=== PATIENT | male | born 1945 | race Caucasian/White ===

== ENCOUNTER 2019-03-29 07:23 | Day surgery (SDC) | payer MEDICARE, OTHER, BC ==
[2019-03-29] MEDS ORDERED: Midazolam* 1 MG/ML 2 ML VIAL (2 MG) ONE ×2 (09:40→10:18)
--- NOTE | 2019-03-29 10:47 | OP ---
OPERATIVE NOTE: DATE OF OPERATION: 03/29/19 DATE OF : 47 SURGEON: Adán Rivera M.D. PREOPERATIVE DIAGNOSIS: Cataract, left eye. POSTOPERATIVE DIAGNOSIS: Cataract, left eye. OPERATIVE PROCEDURE: Extracapsular cataract extraction with intraocular lens implant, left eye. PROCEDURE: The patient was brought to the operating room after being given 1/2% Alcaine with epineph rine drops in the preoperative area. The eye was prepped and draped in the usual sterile fashion. S terile drape and eyelid speculum were placed. Again, topical 1/2% Alcaine with epinephrine was given . A paracentesis incision was made at the 3 o'clock position with the No.75 blade. Clear cornea inc ision 2.2 x 2.2-mm was created at the 6 o'clock position starting at the anterior limbus using the 2. 2-mm keratome. The anterior chamber was irrigated with 0.4 mL of 1% non-preservative intracameral li docaine and filled with DisCoVisc. A capsulorrhexis was completed using the cystotome and the Utrata forceps. Hydrodissection was performed with balanced salt solution. The lens nucleus was removed wi th the Phacoemulsification handpiece without incident. Cortex was removed with the irrigation-aspira tion handpiece. The capsular bag was re-inflated using DisCoVisc and an [id number] implant was insert ed with the shooter. The irrigation-aspiration handpiece was used to remove all residual DisCoVisc. The eye was refilled with balanced salt solution and the wound checked and found to be watertight. Topical Maxitrol drops were given. [id number]/[facility] #: [id number]
[2019-03-29 11:05] VITALS: BP 114/68
[2019-03-29] MEDS ORDERED: Cyclopentolate 1% OPTH.SOL* 2 ML BTL ONE (12:21)
[2019-03-29] MEDS ORDERED: Ketorolac 0.5% OPHTH (NF) 0.5 % 5 ML BTL ONE (12:21)
[2019-03-29] MEDS ORDERED: Neomycin/Polymy/Dex OPTH.SUSP* MAXITROL 0.1% 5 ML ONE (12:21)
[2019-03-29] MEDS ORDERED: Lidocaine 1% MPF ** 5 ML VIAL ONE (12:21)
[2019-03-29] MEDS ORDERED: Phenylephrine OPHTH SOL 2.5%* 2 ML ONE (12:21)
[2019-03-29] MEDS ORDERED: Povidone Iodine 5% OPTH* 30 ML BTL ONE (12:21)
[2019-03-29] MEDS ORDERED: Lidocaine 2% w/ EPI 1:200,000* 20 ML VIAL ONE (12:21)
[2019-03-29] MEDS ORDERED: acetaZOLAMIDE TAB* 250 MG ONE (12:21)
[2019-03-29] MEDS ORDERED: Proparacaine 0.5% OPHTH.SOL* 15 ML BTL ONE (12:21)
[2019-03-31] MEDS ORDERED: Acetaminophen TAB* 325 MG PO PRN (05:00)
== END 2019-03-29 10:45 | disposition home or self-care (01) ==
LOC: OREAST 07:23
PROVIDERS: ATTEND Specialist
DX: H25.12 Age-related nuclear cataract, left eye (principal); E78.5 Hyperlipidemia, unspecified; R00.2 Palpitations; Z87.891 Personal history of nicotine dependence; M25.50 Pain in unspecified joint; Z79.891 Long term (current) use of opiate analgesic
CPT/HCPCS: A9270-GY; J2250; V2632